=== PATIENT | female | born 1960 | race Caucasian/White ===

== ENCOUNTER 2019-09-03 08:22 | Day surgery (SDC) | payer OTHER ==
[~2019-09-03] VITALS: Ht 177.8 cm; Wt 114.3 kg
[2019-09-03 08:50] LABS: BASOPHILS 0.8 % (0-2); EOSINOPHILS 4.5 % (0-7); HEMATOCRIT 36.5 % (36.0-48.0); HEMOGLOBIN 11.6 g/dL (12-16); IMMATURE GRANULOCYTES 0.3 % (0-5); LYMPHOCYTES 14.1 % (15-50); MCH 28.9 pg (26.0-34.0); MCHC 31.8 g/dL (31.0-37.0); MCV 90.8 fL (80.0-100.0); MEAN PLATELET VOLUME 8.5 fL (7.4-10.4); MONOCYTES 5.8 % (2-11); NEUTROPHILS 74.5 % (40-80); PLATELET COUNT 190 10x3/uL (130-400); RBC 4.02 10x6/uL (4.00-5.40); RDW 14.9 % (11.5-14.5)
[2019-09-03 08:58] LABS: ANION GAP 13.4 mmol/L (8-16); CALCIUM 8.9 mg/dL (8.5-10.1); CREATININE - SERUM 3.6 mg/dL (0.6-1.3); POTASSIUM - SERUM 4.4 mmol/L (3.5-5.1)
[2019-09-03 09:04] LABS: INR 0.97 (0.85-1.17); PROTIME 12.8 SECONDS (11.6-15.0)
[2019-09-03] MEDS ORDERED: NORMODYNE / TR300 MG PO (09:44)
[2019-09-03] MEDS ORDERED: LEVEMIR IN100 UNITS/ SC (09:45)
[2019-09-03] MEDS ORDERED: NORVASC10 MG PO (09:45)
[2019-09-03 09:54] VITALS: BP 152/85; Ht 177.8 cm; Wt 114.3 kg
--- NOTE | 2019-09-03 15:13 | NUR ---
PT IS ON 3L O2 VIA NC AT HOME.
--- NOTE | 2019-09-03 15:14 | NUR ---
DC INSTRUCTIONS GIVEN TO PT/FAMILY. STATE UNDERSTANDING. DC'D IV CATH FULLY INTACT.
--- NOTE | 2019-09-03 15:19 | NUR ---
PT LEFT UNIT VIA WC AT [id number]
--- NOTE | 2019-09-04 15:45 | OP ---
PATIENT NAME: SUNSHINE FORET MEDICAL RECORD: [id number] :58 LOCATION:[facility] ADMISSION DATE: SURGEON: EDUARD EL MD DATE OF OPERATION: 09/03/2019 REFERRING PHYSICIAN: Kwame Faria MD PREOPERATIVE DIAGNOSIS: ESRD. POSTOPERATIVE DIAGNOSIS: ESRD. OPERATION PERFORMED: Implantation of a left arm loop artery graft between the proximal brachial artery and proximal basilic vein. SURGEON: Eduard El MD ANESTHESIA: Regional nerve block plus TIVA per PLANT SENIOR MANAGER. PREOPERATIVE NOTE: Ms. Forte is a 59-year-old white female patient with end-stage renal disease, who has had a failed right arm brachiobasilic fistula per Dr. Suarez and was subsequently referred to me and is brought to the operating room today to have a new fistula created if possible. The patient would prefer to have it in her left arm and she is right-hand dominant, I have told her we will look for a vein, particularly a basilic vein and consider her for translocated basilic vein fistula versus implanting an Artegraft. She is in agreement. Under regional nerve block plus TIVA, the patient was placed in supine position, prepped and draped in sterile manner. I used a proximal venous tourniquet, a [place] drain, and treated the skin of the arm and forearm with an application of nitroglycerin paste. I examined her with Duplex ultrasound and noted she had rather small veins. The basilic vein was potentially usable but I felt it would be perhaps a long time maturing if we were able to make a fistula from it at all and I elected to go ahead with a prosthetic graft. PROCEDURE: I made a transverse axillary incision and exposed the very proximal basilic vein and brachial artery. These vessels were dissected and controlled with Silastic loops. I made a counter incision just above the antecubital space. I chose an Artegraft. This was rinsed and prepared for use according to vulnerability researcher's instructions. One end was bevelled. The artery was then occluded with Silastic loops and opened and flushed proximally and distally with heparinized saline. The graft was then anastomosed to the [id number] to side of artery with continuous running 6-0 Prolene, and when completed, the suture line was hemostatic. The graft was then placed in a circuitous subcutaneous tunnel utilizing counter incision and brought back up to the axilla where it was shortened just a little bit and bevelled, flushed with heparinized saline. The vein was occluded proximally and distally and opened and an end-to-side, end of graft to side of vein anastomosis performed with running 6-0 Prolene. When the anastomosis was completed and the occluding tapes and loops and clamps were released, excellent flow was immediately established within this new AV graft and the suture line was hemostatic. The blood loss during the procedure was insignificant perhaps 10 mL. None was replaced. Sponges, instruments, and needles were accounted for. No drain was used and no surgical specimen was submitted for histopathology. OPERATIVE REPORT [id number] SUNSHINE FORTE I expect that this graft should be able to be used for access for dialysis in 10 days. I will plan to see her back in my office next week. THE PATIENT HAS LISTED ALLERGIES TO MORPHINE, HYDROCODONE, AND TRAMADOL and so I am simply going to have her continue on her same home medications and recommend she take Tylenol as needed for pain and discomfort and use an ice pack off and on, the operative site, taking care not to get a general chill from over cooling. TRANSINT:[id number] Voice Confirmation ID: [id number] DOCUMENT ID: [id number] cc: [facility] EDUARD EL MD at 1544 CC: KWAME FARIA [id number] DICTATION DATE: 09/03/19 141 INTERNATIONAL REPRESENTATIVE: 09/03/192126 [facility] 09/03/19 [facility] [address] [place] [address]
== END 2019-09-03 15:19 | disposition home or self-care (01) ==
LOC: D.OPS 08:22
PROVIDERS: Surgery; ATTEND Internal Medicine Nephrology
DX: N18.6 End stage renal disease (principal); Z99.2 Dependence on renal dialysis; I10 Essential (primary) hypertension; E11.22 Type 2 diabetes mellitus with diabetic chronic kidney disease